=== PATIENT | male | born 1980 | race African-American/Black ===

== ENCOUNTER 2016-09-19 07:41 | Emergency (ER) | payer MEDICAID ==
[~2016-09-19] VITALS: Ht 182.9 cm; Wt 88.6 kg
[2016-09-19 07:43] VITALS: BP 132/91
[2016-09-19] MEDS ORDERED: OxyCODONE HCL/ACETAMINOPHEN 5-325 MG TABLET PO ONE (08:30)
[2016-09-19] MEDS ORDERED: KETOROLAC TROMETHAMINE 60 MG/2 ML VIAL IM ONE (08:30)
== END 2016-09-19 09:56 | disposition home or self-care (01) ==
LOC: EMS 07:48
DX: S39.012A Strain of muscle, fascia and tendon of lower back, initial encounter (principal); S29.012A Strain of muscle and tendon of back wall of thorax, initial encounter; F17.210 Nicotine dependence, cigarettes, uncomplicated; V49.40XA Driver injured in collision with unspecified motor vehicles in traffic accident, initial encounter; Y93.89 Activity, other specified; Y92.89 Other specified places as the place of occurrence of the external cause; Y99.8 Other external cause status
CPT/HCPCS: 96372; 99283; J1885

== ENCOUNTER 2020-10-13 22:58 | Inpatient (IN) | payer MEDICAID ==
[~2020-10-13] VITALS: Ht 182.9 cm; Wt 93.7 kg
[2020-10-14] MEDS ORDERED: ZOLPIDEM TARTRATE 10 MG TABLET PO PRN (01:00)
[2020-10-14] MEDS ORDERED: HALOPERIDOL 5 MG TABLET PO PRN (01:00)
[2020-10-14 02:01] VITALS: BP 127/69
[2020-10-14] MEDS ORDERED: GuaiFENesin/D-METHORPHAN [SUGAR-FREE] 200-20MG/10 ML SYRUP UDCUP PO PRN (08:00)
[2020-10-14] MEDS ORDERED: NICOTINE 14 MG/24 HOUR PATCH TD PRN (08:00)
[2020-10-14] MEDS ORDERED: PETROLATUM,WHITE 28 GM JELLY TP PRN (08:00)
[2020-10-14] MEDS ORDERED: ONDANSETRON HCL 4 MG TABLET PO PRN (08:00)
[2020-10-14] MEDS ORDERED: DOCUSATE SODIUM 100 MG CAPSULE PO PRN (08:00)
[2020-10-14] MEDS ORDERED: ACETAMINOPHEN 325 MG TABLET PO PRN (08:00)
[2020-10-14] MEDS ORDERED: CloNIDine HCL 0.1 MG TABLET PO PRN (08:00)
[2020-10-14] MEDS ORDERED: MAGNESIUM HYDROXIDE SUSPENSION 30 ML UDCUP PO PRN (08:00)
[2020-10-14] MEDS ORDERED: LOPERAMIDE HCL 2 MG CAPSULE PO PRN (08:00)
[2020-10-14] MEDS ORDERED: ALBUTEROL SULFATE HFA 90 MCG/PUFF 8 GM INHALER IH PRN (08:00)
[2020-10-14] MEDS ORDERED: MAG HYDROX/AL HYDROX/SIMETH ES 30 ML SUSPENSION UDCUP PO PRN (08:00)
[2020-10-14 08:32] VITALS: BP 121/68
[2020-10-14] MEDS ORDERED: SERT-162 PO (08:46)
[2020-10-14] MEDS ORDERED: QUET100T PO (08:46)
[2020-10-14] MEDS ORDERED: SERTRALINE HCL 100 MG TABLET PO SCH (13:00)
[2020-10-14 16:08] VITALS: BP 127/83
[2020-10-14] MEDS: QUEtiapine FUMARATE 200 MG TABLET PO SCH (20:42)
[2020-10-14] MEDS: LORazepam 2 MG TABLET PO PRN (20:43)
[2020-10-15 05:42] VITALS: BP 120/71
[2020-10-15] MEDS: LORazepam 2 MG TABLET PO PRN (08:30)
[2020-10-15] MEDS: SERTRALINE HCL 50 MG TABLET PO SCH (09:06)
[2020-10-15 09:21] VITALS: BP 120/56
[2020-10-15 16:12] VITALS: BP 118/61
[2020-10-15] MEDS: QUEtiapine FUMARATE 200 MG TABLET PO SCH (20:47)
[2020-10-16 04:10] VITALS: BP 123/78
[2020-10-16] MEDS: LORazepam 2 MG TABLET PO PRN (08:00)
[2020-10-16 08:22] VITALS: BP 107/57
[2020-10-16] MEDS: SERTRALINE HCL 50 MG TABLET PO SCH (08:54)
[2020-10-16 16:14] VITALS: BP 107/69
[2020-10-16] MEDS: QUEtiapine FUMARATE 200 MG TABLET PO SCH (20:26)
[2020-10-17 06:29] VITALS: BP 101/57
[2020-10-17] MEDS: LORazepam 2 MG TABLET PO PRN ×2 (08:00→16:18)
[2020-10-17] MEDS: SERTRALINE HCL 50 MG TABLET PO SCH (08:27)
[2020-10-17 08:45] VITALS: BP 112/64
[2020-10-17 16:08] VITALS: BP 125/82
[2020-10-17] MEDS: QUEtiapine FUMARATE 200 MG TABLET PO SCH (20:48)
[2020-10-18 06:17] VITALS: BP 97/67
[2020-10-18] MEDS: LORazepam 2 MG TABLET PO PRN (08:00)
[2020-10-18] MEDS: SERTRALINE HCL 50 MG TABLET PO SCH (08:50)
[2020-10-18 09:09] VITALS: BP 110/68
[2020-10-18 16:28] VITALS: BP 104/62
[2020-10-18] MEDS: QUEtiapine FUMARATE 300 MG TABLET PO SCH (20:39)
[2020-10-19 05:58] VITALS: BP 99/75
[2020-10-19] MEDS: LORazepam 2 MG TABLET PO PRN ×2 (08:00→16:37)
[2020-10-19] MEDS: SERTRALINE HCL 100 MG TABLET PO SCH (08:51)
[2020-10-19 10:32] VITALS: BP 106/73
[2020-10-19 16:37] VITALS: BP 122/78
[2020-10-19] MEDS: IBUPROFEN 400 MG TABLET PO PRN (16:37)
[2020-10-19] MEDS: QUEtiapine FUMARATE 300 MG TABLET PO SCH (20:16)
[2020-10-20 02:26] VITALS: BP 120/75
[2020-10-20 08:27] VITALS: BP 110/72
[2020-10-20] MEDS: LORazepam 2 MG TABLET PO PRN (08:38)
[2020-10-20] MEDS: SERTRALINE HCL 100 MG TABLET PO SCH (08:38)
[2020-10-20] MEDS: LORATADINE 10 MG TABLET PO PRN (08:52)
[2020-10-20 16:13] VITALS: BP 116/75
[2020-10-20] MEDS: IBUPROFEN 400 MG TABLET PO PRN (17:39)
[2020-10-20] MEDS: QUEtiapine FUMARATE 300 MG TABLET PO SCH (20:27)
[2020-10-21 05:52] VITALS: BP 98/69
[2020-10-21] MEDS: SERTRALINE HCL 100 MG TABLET PO SCH (08:56)
[2020-10-21] MEDS: LORazepam 2 MG TABLET PO PRN (09:08)
[2020-10-21 10:20] VITALS: BP 104/73
[2020-10-21] MEDS: LORATADINE 10 MG TABLET PO PRN (16:09)
[2020-10-21 16:13] VITALS: BP 115/73
[2020-10-21] MEDS: QUEtiapine FUMARATE 200 MG TABLET PO SCH (20:11)
[2020-10-22 00:15] VITALS: BP 109/72
[2020-10-22 08:18] VITALS: BP 108/69
[2020-10-22] MEDS: LORATADINE 10 MG TABLET PO PRN (09:33)
[2020-10-22] MEDS: SERTRALINE HCL 100 MG TABLET PO SCH (09:33)
[2020-10-22 16:20] VITALS: BP 115/77
[2020-10-22] MEDS: QUEtiapine FUMARATE 200 MG TABLET PO SCH (20:49)
[2020-10-23 06:07] VITALS: BP 98/71
[2020-10-23 08:17] VITALS: BP 105/76
[2020-10-23] MEDS: SERTRALINE HCL 100 MG TABLET PO SCH (09:24)
[2020-10-23] MEDS: LORATADINE 10 MG TABLET PO PRN (15:53)
[2020-10-23 16:07] VITALS: BP 107/74
[2020-10-23] MEDS: QUEtiapine FUMARATE 200 MG TABLET PO SCH (20:41)
[2020-10-24 06:25] VITALS: BP 114/73
[2020-10-24 08:26] VITALS: BP 112/74
[2020-10-24] MEDS: SERTRALINE HCL 100 MG TABLET PO SCH (08:44)
[2020-10-24] MEDS: LORATADINE 10 MG TABLET PO PRN (08:44)
[2020-10-24 16:33] VITALS: BP 112/71
[2020-10-24] MEDS: QUEtiapine FUMARATE 200 MG TABLET PO SCH (20:33)
[2020-10-25 01:17] VITALS: BP 112/72
[2020-10-25 08:28] VITALS: BP 101/67
[2020-10-25] MEDS: SERTRALINE HCL 100 MG TABLET PO SCH (08:29)
[2020-10-25] MEDS: LORATADINE 10 MG TABLET PO PRN (15:47)
[2020-10-25 15:48] VITALS: BP 102/72
[2020-10-25] MEDS: IBUPROFEN 400 MG TABLET PO PRN (15:48)
[2020-10-25 16:09] VITALS: BP 117/65
[2020-10-25] MEDS: QUEtiapine FUMARATE 200 MG TABLET PO SCH (20:50)
[2020-10-26 04:57] VITALS: BP 122/79
[2020-10-26 08:26] VITALS: BP 106/70
[2020-10-26] MEDS: SERTRALINE HCL 100 MG TABLET PO SCH (09:30)
[2020-10-26] MEDS: IBUPROFEN 400 MG TABLET PO PRN (11:31)
[2020-10-26] MEDS: LORATADINE 10 MG TABLET PO PRN (17:09)
[2020-10-26 17:34] VITALS: BP 104/74
[2020-10-26] MEDS: QUEtiapine FUMARATE 200 MG TABLET PO SCH (20:41)
[2020-10-27 05:36] VITALS: BP 106/69
[2020-10-27] MEDS: SERTRALINE HCL 100 MG TABLET PO SCH (08:53)
[2020-10-27 09:36] VITALS: BP 106/68
[2020-10-27] MEDS: LORATADINE 10 MG TABLET PO PRN (10:40)
[2020-10-27 16:30] VITALS: BP 115/76
[2020-10-27 18:07] VITALS: BP 120/70
[2020-10-27] MEDS: IBUPROFEN 400 MG TABLET PO PRN (18:07)
[2020-10-27] MEDS: QUEtiapine FUMARATE 200 MG TABLET PO SCH (20:14)
[2020-10-28 05:44] VITALS: BP 118/74
[2020-10-28 08:13] LABS: COVID AG,FIA SOURCE NASOPHARYNGEAL
[2020-10-28 08:17] VITALS: BP 121/83
[2020-10-28] MEDS: SERTRALINE HCL 100 MG TABLET PO SCH (08:42)
[2020-10-28] MEDS: LORATADINE 10 MG TABLET PO PRN (08:42)
== END 2020-10-28 13:30 | disposition home or self-care (01) | DRG 750 ==
LOC: B3A 10-14 00:45
DX: F25.0 Schizoaffective disorder, bipolar type (principal); R45.851 Suicidal ideations; Z59.0 Homelessness; F10.10 Alcohol abuse, uncomplicated; Z79.899 Other long term (current) drug therapy; Z20.822 Contact with and (suspected) exposure to COVID-19
CPT/HCPCS: Z7610